=== PATIENT | male | born 1960 | race Caucasian/White ===

== ENCOUNTER 2019-07-10 20:09 | Inpatient (IN) | payer OTHER ==
[~2019-07-10] VITALS: Ht 167.6 cm; Wt 72.6 kg
[2019-07-13] MEDS ORDERED: BACTRIM DS TAB1 EACH PO (07:16)
[2019-07-13] MEDS ORDERED: MEDROLPACK PO (07:17)
== END 2019-07-13 11:11 | disposition home or self-care (01) | DRG 603 ==
LOC: ER 20:09 → MEDI 07-11 11:03 → MEDJ 07-12 13:25 → SURG 07-12 14:23 → MEDJ 07-12 16:37 → SURG 07-12 19:38
PROVIDERS: ADMIT Internal Medicine
DX: L03.113 Cellulitis of right upper limb (principal); I10 Essential (primary) hypertension; T63.441A Toxic effect of venom of bees, accidental (unintentional), initial encounter; Z18.31 Retained animal quills or spines